=== PATIENT | female | born 1965 | race Caucasian/White ===

== ENCOUNTER 2017-05-03 16:58 | Emergency (ER) | payer MEDICAID ==
[2017-05-03 17:22] VITALS: RESP 18
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
[2017-05-03] MEDS ORDERED: TDAP ADULT 0.5 ML INJ (BOOSTRIX) IM ONE (18:51)
[2017-05-03 19:35] VITALS: BP 102/64; PULSE 68; TEMP 97.5; O2SAT 96
== END 2017-05-03 19:34 | disposition home or self-care (01) ==
DX: S50.11XA Contusion of right forearm, initial encounter (principal); S20.222A Contusion of left back wall of thorax, initial encounter; W11.XXXA Fall on and from ladder, initial encounter